=== PATIENT | male | born 1970 | race Caucasian/White ===

== ENCOUNTER 2019-07-13 12:57 | Emergency (ER) | payer OTHER ==
[2019-07-13 13:05] VITALS: BP 121/86; PULSE 81; TEMP 98.2; BMI 23.3
[2019-07-13] MEDS ORDERED: IBUPROFEN 600 MG TABLET (FP) PO ONE ×2 (13:18→13:19)
--- NOTE | 2019-07-13 13:24 | PDOC ---
History of Present Illness - General Chief Complaint: Injury Stated Complaint: PAIN Time Seen by Provider: 07/13/19 13:06 History Source: Patient Exam Limitations: No Limitations Past History - Past Medical History Allergies/Adverse Reactions: Allergies Allergy/AdvReac Type Severity Reaction Status Date / Time No Known Allergies Allergy Verified 07/13/19 13:02 Home Medications: Ambulatory Orders Cephalexin [Keflex] 500 mg PO TID #30 capsule 11/29/14 Sulfamethoxazole/Trimethoprim [Bactrim Ds -] 1 tab PO BID #20 tablet 11/29/14 COPD: No CHF: No DVT: No Dementia: No - Immunization History Immunization Up to Date: Yes - Psycho Social/Smoking Cessation Hx Smoking Status: Yes Smoking History: Current every day smoker Number of Cigarettes Smoked Daily: 10 Information on smoking cessation initiated: No Hx Alcohol Use: No Drug/Substance Use Hx: No *Physical Exam - Vital Signs Last Vital Signs Temp Pulse Resp BP Pulse Ox 98.2 F 81 17 121/86 99 07/13/19 13:02 07/13/19 13:02 07/13/19 13:02 07/13/19 13:02 07/13/19 13:02 - Physical Exam General Appearance: No: Apparent Distress Neck: positive: Supple Extremity: positive: Other (able to range R shoulder but slight pain with movement, no swelling or deformity of shoulder, RUE neurovascularly intact). negative: Swelling, Erythema Integumentary: negative: Erythema, Swelling, Ecchymosis, Bruising Neurologic: positive: Alert Medical Decision Making - Medical Decision Making 49 y/o M with no sig pmh presents with R shoulder injury after picking up a roller machine at work today (works at [employer]). Is R handed and states machine was heavy. Did not fall. Denies neck pain, numbness/tingling/weakness of extremities Possible rotator cuff tear; no suspicion for fracture or dislocation Will refer to orthopedics Given Motrin for pain 07/13/19 13:19 Discharge - Discharge Information Problems reviewed: Yes Clinical Impression/Diagnosis: Right shoulder injury Qualifiers: Encounter type: initial encounter Qualified Code(s): S49.91XA - Unspecified injury of right shoulder and upper arm, initial encounter Condition: Stable Disposition: HOME - Admission No - Additional Discharge Information Prescription Drug Monitoring Program (I-STOP) results: I-STOP not reviewed - Follow up/Referral Referrals: Lent,Lele E, MD [Staff Physician] - 2 Days - Patient Discharge Instructions Patient Printed Discharge Instructions: DI for Rotator Cuff Injury Additional Instructions: Thank you for choosing [facility]. It was a pleasure taking care of you. You possibly have rotator cuff tear. You may take Motrin 600 mg every 6 hours by mouth as needed for mild to moderate pain. Take Motrin with food. You may also ice the site of injury You were referred to orthopedics for further evaluation. Return to the Emergency Department if your symptoms worsen or persist or have other concerning symptoms. - Post Discharge Activity Work/Back to School Note: Back to Work
== END 2019-07-13 14:13 | disposition home or self-care (01) ==
LOC: JERFT 12:57
DX: S49.81XA Other specified injuries of right shoulder and upper arm, initial encounter (principal); M25.511 Pain in right shoulder; X50.0XXA Overexertion from strenuous movement or load, initial encounter; Y93.89 Activity, other specified; Y92.39 Other specified sports and athletic area as the place of occurrence of the external cause; Y99.0 Civilian activity done for income or pay
CPT/HCPCS: 99281-25

== ENCOUNTER 2022-02-09 15:48 | Emergency (ER) | payer OTHER ==
[2022-02-09 16:02] VITALS: BP 125/90; PULSE 76; TEMP 98.2; BMI 25.9
[2022-02-09] MEDS ORDERED: IBUPROFEN 600 MG TABLET (FP) PO ONE ×2 (17:13→17:15)
== END 2022-02-09 18:49 | disposition home or self-care (01) ==
LOC: JERFT 15:48
DX: S30.21XA Contusion of penis, initial encounter (principal); W21.04XA Struck by golf ball, initial encounter
CPT/HCPCS: 72170-TC-FY; 99283-25